=== PATIENT | male | born 1970 | race Caucasian/White ===

== ENCOUNTER 2018-09-09 14:01 | Emergency (ER) | payer SELFPAY ==
[~2018-09-09] VITALS: Ht 162.6 cm; Wt 74.8 kg
[2018-09-09 14:04] VITALS: Ht 162.6 cm; Wt 74.8 kg
[2018-09-09 18:32] VITALS: BP 149/92
== END 2018-09-09 18:32 | disposition home or self-care (01) ==
LOC: ED 14:01
DX: S61.512A Laceration without foreign body of left wrist, initial encounter (principal); R10.30 Lower abdominal pain, unspecified; W45.8XXA Other foreign body or object entering through skin, initial encounter; Y93.89 Activity, other specified; Y92.89 Other specified places as the place of occurrence of the external cause; Y99.8 Other external cause status
CPT/HCPCS: A4570; J2001